=== PATIENT | male | born 2000 | race Caucasian/White ===

== ENCOUNTER 2020-05-15 13:02 | Emergency (ER) | payer BC, SELFPAY | END 2020-05-15 13:26 | disposition left against medical advice (07) | LOC: EXPCOLL 13:16 | PROVIDERS: Emergency Provider Nurse Practitioner | DX: Z53.21 Procedure and treatment not carried out due to patient leaving prior to being seen by health care provider (principal) | CPT/HCPCS: 99199 ==

== ENCOUNTER 2020-07-11 13:16 | Emergency (ER) | payer BC, SELFPAY ==
--- NOTE | 2020-07-11 13:40 | PC.NURSE ---
Pt called for triage multiple times, no response
== END 2020-07-11 13:40 | disposition left against medical advice (07) ==
LOC: ANHED 13:46
DX: Z53.21 Procedure and treatment not carried out due to patient leaving prior to being seen by health care provider (principal)
CPT/HCPCS: 99199